=== PATIENT | female | born 1955 | race Caucasian/White ===

== ENCOUNTER 2023-06-08 16:59 | Emergency (ER) | payer MEDICARE, SELFPAY ==
[2023-06-08 17:01] VITALS: BP 160/88
[2023-06-08 17:22] LABS: % Basophils 0.4 % (0-2); % Eosinophils 0.6 % (0-6); % Immature Granulocytes 0.3 % (0-0.5); % Lymphocytes 4.9 % (20.5-51.1); % Monocytes 5.3 % (1.7-9.3); % Neutrophils 88.5 % (42.2-75.2); Absolute Basophils 0.1 10^3/uL (0-0.2); Absolute Eosinophils 0.1 10^3/uL (0-0.7); Absolute Lymphocytes 0.6 10^3/uL (1.2-3.4); Absolute Monocytes 0.7 10^3/uL (0.1-0.6); Absolute Neutrophils 10.9 10^3/uL (1.4-6.5); Hematocrit 46.1 % (37.0-47.0); Hemoglobin 15.4 g/dL (12.0-16.0); Mean Corp Hgb Conc. 33.4 g/dL (33.0-37.0); Mean Corpuscular Hgb 29.1 pg (27.0-31.0); Mean Platelet Volume 10.8 fL (7.4-10.4); Nucleated Red Blood Cells % 0 %; Platelet Count 187 10^3/uL (130-400); Red Cell Dist. Width 13.4 % (11.5-14.5); White Blood Cell Count 12.4 10^3/uL (4.8-10.8)
[2023-06-08 17:37] LABS: COVID-19 Antigen Negative (Negative)
[2023-06-08 18:20] LABS: ALT (SGPT) 172 U/L (0-35); AST (SGOT) 166 U/L (14-36); Albumin 4.2 g/dl (3.5-5.0); Alkaline Phosphatase 182 U/L (38-126); Blood Urea Nitrogen 16 mg/dl (7-17); Calcium 9.6 mg/dl (8.4-10.2); Carbon Dioxide 25 mmol/L (22-30); Chloride 102 mmol/L (98-107); Glucose 151 mg/dl (70-99); Potassium 3.9 mmol/L (3.5-5.1); Sodium 136 mmol/L (135-145); Total Bilirubin 0.8 mg/dl (0.2-1.3); Total Protein 7.1 g/dl (6.3-8.2); eGFR > 60.00
--- NOTE | 2023-06-08 19:22 | ED.GENMED ---
History of Present Illness
General
Chief Complaint: Fever
Source: patient and spouse
Time Seen by Provider: 06/08/23 19:09
Travel History
Have you had any contact with someone who has COVID-19?: No
Do you have any symptoms of coronavirus? Fever > 100 degrees, chills, cough, shortness of breath, sore throat, loss of taste or smell, muscle aches, or headache?: Yes
Symptoms:: fever
History of Present Illness
History of Present Illness:
This patient is a 67-year-old female who says that Sunday evening she developed a fever. Her has a sinus infection she thought it may be that. Her symptoms continued, and this afternoon she noted that she had loss of appetite associated
with fatigue, increasing sleep, and a fever that went as high as 105. She has a chronic cough which is now dry, slight rhinorrhea, and a mild sore throat earlier today that is now resolved. She also had a headache earlier today that is now
resolved. She denies photophobia, rash, neck stiffness, chest pain, vomiting, abdominal pain, dizziness, urinary symptoms, or other complaints
Past History
Past History
ED Past Medical History: GERD, Other (Prolonged QT) and Other (Kidney stone)
ED Past Surgical History: Cholecystectomy, Gynecological and Other (Hiatal hernia repair)
Social History
Tobacco: Non-smoker
Alcohol: None
Drug: None
Personal:
Living: with family
Employment: Employed
Family History
Family History: Other (Noncontributory)
Phy Exam
Physical Exam
Physical Exam:
GENERAL: Alert , in no apparent distress, overall well-appearing
EYE: pupils equal and reactive, no photophobia
NECK: Supple, no significant adenopathy.
ENT: o/p clr, mm slightly dry, voice clear, uvula midline, no exudate, no trismus, no drool
CARDIAC: Regular rate and rhythm .
LUNGS: Clear breath sounds bilaterally, no acute respiratory distress, no wheezes/rales/rhonchi
ABDOMEN: Soft, without focal tenderness, no r/g, no cvat
NEUROLOGICAL: Alert and oriented, no focal neuro deficits
SKIN: Warm and dry, skin intact.
MUSCULOSKELETAL: No edema, well perfused.
PSYCH: Normal and appropriate interaction.
Course
Orders/Labs/Results
Orders:
Orders
06/08/23 17:14
COVID-19 Antigen Urgent
Source: Nasal Swab
Complete Blood Count/With Diff Urgent
Comprehensive Metabolic Panel Urgent
Monotest Urgent
Comment: ADD ON
Blood Culture Q30M
JIMENEZ Source: Blood/Venous
Specimen Description:
Comment: FROM 2 SEPARATE SITES
06/08/23 19:23
Add On- LAB Urgent
Tests Added?: Monotest
06/08/23 19:32
Blood Culture Q30M
JIMENEZ Source: Blood/Venous
Specimen Description:
Comment: FROM 2 SEPARATE SITES
Influenza A+B Rapid Molecular Stat
JIMENEZ Source: Nasal Swab
Specimen Description:
0.9% Sodium Chloride 1000 ml [Nss] 1,000 ml IV BOLUS
06/08/23 20:17
CR Chest - 2 Views Urgent
Comment:
Reason For Exam: fever cough
Abnormal Lab Results
06/08/23
17:14
WBC 12.4 H 10^3/uL
(4.8-10.8)
MPV 10.8 H fL
(7.4-10.4)
Absolute Neuts (auto) 10.9 H 10^3/uL
(1.4-6.5)
Absolute Lymphs (auto) 0.6 L 10^3/uL
(1.2-3.4)
Absolute Monos (auto) 0.7 H 10^3/uL
(0.1-0.6)
Neutrophils % 88.5 H %
(42.2-75.2)
Lymphocytes % 4.9 L %
(20.5-51.1)
Glucose 151 H mg/dl
(70-99)
AST 166 H U/L
(14-36)
ALT 172 H U/L
(0-35)
Alkaline Phosphatase 182 H U/L
(38-126)
06/08/23 17:14
06/08/23 17:14
Vital Signs
Initial and Last Documented VS:
Initial Vital Signs
Temp Pulse Resp BP Pulse Ox
100.6 F H 109 16 160/88 96
06/08/23 17:01 06/08/23 17:01 06/08/23 17:01 06/08/23 17:01 06/08/23 17:01
Last Documented Vital Signs
Temp Pulse Resp BP Pulse Ox
100.6 F H 96 18 139/58 92
06/08/23 17:01 06/08/23 20:06 06/08/23 20:06 06/08/23 20:06 06/08/23 20:06
*Critical Care Note
Total Time (30-74mins, 75-104mins- exclusive of procedures): Not Applicable
Update Note
Update Note:
Patient presents to the Emergency Department with _fever
Number and Complexity of Problems Addressed at the Encounter
� Chronic conditions affecting care:
� Acute Exacerbation and/or Progression of Chronic Illness:
� Differential Diagnosis includes: But not limited to influenza, COVID, pneumonia, viral syndrome, etc.
Amount and/or Complexity of Data to be Reviewed and Analyzed
� I performed an independent evaluation of and my interpretation is:
EKG:
CT:
Xrays: Suspect right lower lobe infiltrate, read by me
Laboratory Studies: White blood cell count elevation noted consistent with suspected pneumonia, nonspecific LFT elevations patient made aware including importance of follow-up regarding
Other:
� Review of other/old records reveals: Reviewed office records from March [address] Cannon as provided by patient
� Clinical information was obtained by an independent historian: who is bedside
� Prescriptions/Medications Considered but not given:
� Further testing considered but not performed:
Risk of Complications and/or Morbidity or Mortality of Patient Management
� Social determinants of health affecting care:
� Discussion with other providers (PCP, Hospitalists, Consultants, etc):
� Escalation of care including admission/observation vs risk of discharge considered: Patient remains comfortable here, normal pulse ox, no respiratory distress, no signs to suggest sepsis, cultures have been obtained and are
pending. Patient made aware of LFT abnormalities importance of follow-up regarding, as well as suspected pneumonia here, expected clinical course at home, and reasons to return to the ER. Patient is stable, well-appearing, and able to take
medications at home.
ED Attending Note
-
Portions of this chart may have been created with voice recognition software.� Occasional wrong word or��sound alike� substitutions may have occurred due to the inherent limitations of voice recognition software.
Discharge Plan
Departure
Patient Disposition: Home (Routine Discharge)
Date of Disposition: 06/08/23
Time of Disposition: 22:27
Patient with high blood pressure during this ER visit?: Yes
Condition: Good
Discharge Problem:
Pneumonia
Instructions: Pneumonia in adults, BLOOD PRESSURE
Prescriptions:
New
doxycycline hyclate 100 mg capsule
100 mg PO BID Qty: 14 0RF
Referrals:
Len Ramos, [Family Provider] - Follow up in 2-3 days
Activity Restrictions/Additional Instructions:
IF YOU DEVELOP TROUBLE BREATHING, CHEST PAIN, DIZZINESS, GET WORSE, DO NOT GET BETTER, OR OTHER WORRISOME SIGNS, PLEASE RETURN TO THE ER IMMEDIATELY.
Interventions
Interventions:
*Risk Screen - Suicide Last Done: 06/08/23 17:01
*General Assessment Last Done: 06/08/23 17:01
*Neglect/Abuse Screening Last Done: 06/08/23 17:01
ED- Neurological Assessment Last Done: 06/08/23 19:54
ED-Skin Assessment Last Done: 06/08/23 19:54
Discharge Date and Time
Print Language: ITALIAN
[2023-06-08 19:33] VITALS: BP 143/53
[2023-06-08] MEDS: NSS 1000 IV (19:33)
[2023-06-08 20:06] VITALS: BP 139/58
[2023-06-08 20:09] LABS: Monotest Negative (Negative)
[2023-06-08] MEDS: VIBRAMYCIN 100 MG PO (23:02)
== END 2023-06-08 23:09 | disposition home or self-care (01) ==
LOC: EMR 16:59
PROVIDERS: Emergency Medicine; EMERGENCY PHYSICIAN Emergency Medicine; FAMILY PHYSICIAN Family Medicine
DX: R50.9 Fever, unspecified (principal)
CPT/HCPCS: 99283; 96360; 96361; 71046; 80053; 85025; 86308; 87040; 87502; 87811

== ENCOUNTER → 2023-07-12 10:46 | Outpatient (REF) | payer MEDICARE, SELFPAY | LOC: RAD 10:46 | PROVIDERS: ATTENDING PHYSICIAN Family Medicine; REFERRING PHYSICIAN Internal Medicine Critical Care Medicine | DX: J18.9 Pneumonia, unspecified organism (principal) | CPT/HCPCS: 71046 ==

== ENCOUNTER → 2023-09-11 08:16 | Outpatient (REF) | payer MEDICARE, SELFPAY | LOC: RAD 08:16 | PROVIDERS: ATTENDING PHYSICIAN Internal Medicine Critical Care Medicine; FAMILY PHYSICIAN Family Medicine | DX: R05.3 Chronic cough (principal); R91.8 Other nonspecific abnormal finding of lung field | CPT/HCPCS: 71250 ==

== ENCOUNTER → 2023-12-13 12:33 | Outpatient (REF) | payer MEDICARE, SELFPAY | LOC: WDC 12:33 | PROVIDERS: ATTENDING PHYSICIAN Family Medicine | DX: Z12.39 Encounter for other screening for malignant neoplasm of breast (principal); Z12.31 Encounter for screening mammogram for malignant neoplasm of breast | CPT/HCPCS: 77063; 77067 ==

== ENCOUNTER → 2024-03-18 09:19 | Outpatient (REF) | payer MEDICARE, SELFPAY | LOC: HWRAD 09:19 | PROVIDERS: ATTENDING PHYSICIAN Internal Medicine Critical Care Medicine; FAMILY PHYSICIAN Family Medicine | DX: R91.8 Other nonspecific abnormal finding of lung field (principal) | CPT/HCPCS: 71250 ==

== ENCOUNTER → 2024-07-03 08:21 | Outpatient (REF) | payer MEDICARE, SELFPAY | LOC: HWRAD 08:21 | PROVIDERS: ATTENDING PHYSICIAN Otolaryngology; FAMILY PHYSICIAN Family Medicine | DX: J32.0 Chronic maxillary sinusitis (principal) | CPT/HCPCS: 70486 ==

== ENCOUNTER → 2024-07-09 10:45 | Outpatient (REF) | payer MEDICARE, SELFPAY | LOC: CLAB 10:45 | PROVIDERS: ATTENDING PHYSICIAN Otolaryngology | DX: J44.89 Other specified chronic obstructive pulmonary disease (principal) | CPT/HCPCS: 87205 ==